=== PATIENT | male | born 1955 | race Caucasian/White ===

== ENCOUNTER 2025-04-30 09:38 | Emergency (ER) | payer MEDICARE, OTHER ==
[~2025-04-30] VITALS: Ht 188 cm; Wt 75.6 kg
[~2025-04-30 09:38] MED LIST: ASPIR 8181 MG PO; CARBIDOPA-LEVO1 EACH PO; GLUCOPHAGE500 MG PO; HYDROCHLOROTH12.5 M1 PO; LEVOTHYROXINE150 MCG PO; LIPITOR20 MG; LISINOPRIL30 MG PO; VITAMIN D22000 UNIT PO
[2025-04-30] MEDS ORDERED: CARBIDOPA-LEVO1 EAC1 PO (10:35)
[2025-04-30] MEDS ORDERED: ENTACAPONE200 MG PO (10:35)
[2025-04-30] MEDS ORDERED: TAMSULOSIN HCL0.4 MG PO (10:36)
[2025-04-30 11:02] LABS: BASOPHILS 0.5 % (0.2-1.2); EOSINOPHILS 0.3 % (0.8-7.0); HEMATOCRIT 39.5 % (40.1-51.0); HEMOGLOBIN 13.5 g/dL (13.7-17.5); LYMPHOCYTES 9.2 % (21.8-53.1); MCH 31.8 PG (25.7-32.2); MCHC 34.2 g/dL (32.3-36.5); MCV 92.9 fL (79.0-92.2); MONOCYTES 9.4 % (5.3-12.2); NEUTROPHILS 80.4 % (34.0-67.9); PLATELET COUNT 181 K/uL (163-337); RBC 4.25 M/uL (4.63-6.08)
[2025-04-30 11:14] LABS: INR 1.04 (0.80-1.30); PROTIME 12.9 Sec (11.2-14.2)
[2025-04-30 11:19] LABS: ALBUMIN 3.4 g/dL (3.4-5.0); ALCOHOL, MEDICAL <3 ng/dL (<3); ALKALINE PHOSPHATASE 58 U/L (46-116); ANION GAP 12.6 (7-21); AST (SGOT) 11 U/L (15-37); BILIRUBIN, TOTAL 1.5 mg/dL (0.2-1.0); CALCIUM 9.6 mg/dL (8.5-10.1); CARBON DIOXIDE 29 mmol/L (21-32); CHLORIDE 101 mmol/L (98-107); CREATININE, SERUM 1.05 mg/dL (0.70-1.30); GLOMERULAR FILTRATION RATE,EST 75 mL/min (>60); POTASSIUM 3.6 mmol/L (3.5-5.1); PROTEIN, TOTAL 6.5 g/dL (6.4-8.2); UREA NITROGEN 21 mg/dL (7-18)
[2025-04-30 11:20] LABS: ALT (SGPT) 4 U/L (14-59)
[2025-04-30 11:44] LABS: ABO A; ANTIBODY SCREEN NEGATIVE; RH POSITIVE
[2025-04-30] MEDS ORDERED: PERCOCET 5-3251 EACH PO (12:46)
[2025-04-30 13:00] VITALS: BP 151/101
--- NOTE | 2025-05-01 19:07 | EKG ---
[facility] [address] [place], [place] [address] Signed Normal sinus rhythm Nonspecific ST and T wave abnormality Abnormal ECG Confirmed by Onesimo Cullen DO ([id number]) on 05/01/2025 7:07:36 PM Electronically Signed By: ONESIMO CULLEN DO 05/01/251906 PATIENT NAME: ROBERTORADHASHAY MYERS Electrocardiogram DATE OF : 51 PHYSICIAN: ONESIMO CULLEN DO REPORT #: [id number] REPORT IS CONFIDENTIAL AND NOT TO BE RELEASED WITHOUT AUTHORIZATION
== END 2025-04-30 13:00 | disposition home or self-care (01) ==
LOC: ED 09:38
PROVIDERS: Emergency Medicine
DX: S22.41XA Multiple fractures of ribs, right side, initial encounter for closed fracture (principal); S00.03XA Contusion of scalp, initial encounter; R55 Syncope and collapse; W18.30XA Fall on same level, unspecified, initial encounter; Y92.002 Bathroom of unspecified non-institutional (private) residence as the place of occurrence of the external cause; Z79.899 Other long term (current) drug therapy; Z79.82 Long term (current) use of aspirin; Z79.84 Long term (current) use of oral hypoglycemic drugs; I10 Essential (primary) hypertension
CPT/HCPCS: 36415; 70450; 71260; 72125; 74177; 80053; 80307; 85025; 85610; 86850; 86900; 86901; 93005; 93010; 99284-25; G0480; Q9967